=== PATIENT | male | born 1975 | race Caucasian/White ===

== ENCOUNTER → 2016-12-11 | Emergency (ER) | payer BC ==
[~2016-12-11] VITALS: Ht 175.3 cm; Wt 70.3 kg
[~2016-12-11] MED LIST: CIPR-17 PO; CLIN-62 PO; EPIN0.3P3 IJ; EPINEPHrine INJECTION 1 MG/ML AMP IM ONE; EPINEPHrine INJECTION 1 MG/ML AMP ONE; FAMO20TA5 PO; FAMOTIDINE 20MG/2ML IV (PEPCID) IVP SCH; FAMOTIDINE 20MG/2ML IV (PEPCID) ONE; HYDR-34 PO; MULT-974 PO; NS IV 1000 ML 1,000 ML IV SCH; ONDANSETRON 4 MG/2 ML (SDV) Z0FRAN ONE; PRD20T PO; diphenhydrAMINE 50 MG/ML INJ (BENADRYL) IM ONE; methylPREDNISolone 125 MG (Solu-MEDROL) VIAL IVP ONE; predniSONE 20 MG TAB PO ONE
--- NOTE | 2016-12-11 15:26 | ED Integumentary General ---
General Stated Complaint: ALLERGIC REACTION Source: patient, family History of Present Illness Time seen by provider: 15:26 Initial Comments 41-year-old male presents with allergic reaction. Patient was stung by a honey bee in his garden shortly prior to presentation. The patient was able to remove the stinger. He took Benadryl and Pepcid and came to the emergency department as he has had severe allergic reactions from bee stings in the past. Allergies and Home Medications Allergies Coded Allergies: Penicillins (Unverified Allergy, Severe, ANAPHYLAXIS, 02/25/14) Home Medications Multivitamin 1 Each Tablet, 1 EACH PO DAILY, (Reported) Constitutional: No chills, No fever EENTM: throat swelling (patient has a sensation that his throat is swelling.), No blurred vision Respiratory: No cough, short of breath, No stridor, No wheezing Cardiovascular: No chest pain Gastrointestinal: No abdominal pain, nausea, No vomiting Genitourinary: no symptoms reported Musculoskeletal: No back pain Skin: other (urticaria and swelling) Psychiatric/Neurological: No Symptoms Reported Endocrine: No Symptoms Reported Hematologic/Lymphatic: No Symptoms Reported Past [id number] Hx Patient Social History Former Smoker/When Quit: Feb 17, 1995 Recent Foreign Travel: No Contact w/Someone Who Travel: No Immunizations Up To Date Tetanus Booster (TDap): Less than 5yrs Date of Influenza Vaccine: Mar 20, 2002 Surgeries HX Surgeries: Yes Surgeries: Vasectomy Respiratory Hx Respiratory Disorders: No Cardiovascular Hx Cardiac Disorders: No Neurological Hx Neurological Disorders: Yes Reproductive System Hx Reproductive Disorders: No Sexually Transmitted Disease: No HIV/AIDS: No Genitourinary Hx Genitourinary Disorders: No Gastrointestinal Hx Gastrointestinal Disorders: No Musculoskeletal Musculoskeletal Disorders: Fractures Endocrine Hx Endocrine Disorders: No HEENT HX ENT Disorders: No Loss of Vision: Denies Hearing Impairment: Denies Cancer Hx Cancer: Yes (basal cell carcinoma top of head removed) Psychosocial Behavioral Health Disorders: Sleep Difficulties Integumentary HX Skin/Integumentary Disorder: No Blood Transfusions Hx Blood Disorders: No Adverse Reaction to a Blood Tr: No (never had transfusion) Reviewed Nursing Assessment Reviewed/Agree w Nursing PMH: Yes Family Medical History Significant Family History: No Pertinent Family Hx Physical Exam Vital Signs Vital Sign - Last 12Hours 12/11/16 15:22 Temp 98.0 Pulse 52 Resp 16 B/P (MAP) 118/85 Capillary Refill : General Appearance: WD/WN, moderate distress HEENT: normal ENT inspection Neck: non-tender, supple, other (there is area of erythema over the right anterior neck 2 inches in diameter above the clavicle from the bee sting) Cardiovascular: normal peripheral pulses, regular rate, rhythm Respiratory: chest non-tender, lungs clear, normal breath sounds, no respiratory distress Gastrointestinal: normal bowel sounds, non tender, soft Back: normal inspection Extremities: normal range of motion, non-tender Neurologic/Psychiatric: no motor/sensory deficits, alert, normal mood/affect Skin: other (insect sting right neck, swelling of the arms and urticaria.) Skin Problem Character: erythema, urticarial, warm Progress/Results/Core Measures Results/Orders My Orders Orders - GOOD LOOMIS MD Iv 1000 Ml (Sodium Chloride 0.9%) (12/11/16 15:30) Famotidine Injection (Pepcid Injection) (12/12/16 09:00) Methylprednisolone Sod Succ (Solu-Medrol (12/11/16 15:30) Diphenhydramine Injection (Benadryl Inje (12/11/16 15:30) Famotidine Injection (Pepcid Injection) (12/11/16 15:25) Ondansetron Injection (Zofran Injectio (12/11/16 15:35) Epinephrine 1 Mg Injection (Adrenalin I (12/11/16 15:38) Epinephrine 1 Mg Injection (Adrenalin I (12/11/16 15:45) Prednisone Tablet (Deltasone Tablet) (12/11/16 16:45) Medications Given in ED Current Medications Medications Dose Ordered Sig/Judy Route Start Time Stop Time Status Last Admin Dose Admin Diphenhydramine HCl 25 mg ONCE ONCE IM 12/11/16 15:30 12/11/16 15:31 DC 12/11/16 15:31 25 MG Epinephrine HCl 0.3 mg ONCE ONCE IM 12/11/16 15:45 12/11/16 15:46 DC 12/11/16 15:47 0.3 MG Methylprednisolone Sodium Succinate 125 mg ONCE ONCE IVP 12/11/16 15:30 12/11/16 15:31 DC 12/11/16 15:30 125 MG Ondansetron HCl 4 mg STK-MED ONCE .ROUTE 12/11/16 15:35 12/11/16 15:41 DC 12/11/16 15:40 4 MG Vital Signs/I&O Vital Sign - Last 12Hours 12/11/16 15:22 Temp 98.0 Pulse 52 Resp 16 B/P (MAP) 118/85 Progress Note : Time: 16:40 Progress Note Patient received 0.3 mL of epinephrine IM.Solu-Medrol IV, mg of Benadryl IV, and Pepcid IV. Patient was observed for approximately an hour during which time his symptoms essentially abated. Departure Impression Impression: Primary Impression: Bee sting Qualified Codes: T63.441A - Toxic effect of venom of bees, accidental ( unintentional), initial encounter Additional Impression: Allergic reaction to bee sting Disposition: HOME, SELF-CARE Condition: Improved Departure-Patient Inst. Decision time for Depature: 16:44 Referrals: IZAIAH HAAS MD (PCP/Family) Primary Care Physician Patient Instructions: Insect Bites and Stings (DC) Add. Discharge Instructions: Prednisone, Pepcid, and Benadryl as prescribed. Come back if any further problems or questions. Follow-up with your physician on Monday. GOOD LOOMIS MD Dec 11, 2016 15:26
[2016-12-11 16:57] VITALS: BP 109/60
== END | disposition home or self-care (01) ==
LOC: EDUNIT# 15:21 → ER 15:22
DX: T63.441A Toxic effect of venom of bees, accidental (unintentional), initial encounter (principal); Z87.891 Personal history of nicotine dependence; Y92.007 Garden or yard of unspecified non-institutional (private) residence as the place of occurrence of the external cause
CPT/HCPCS: 93041

== ENCOUNTER → 2017-11-06 | Outpatient (CLI) | payer BC ==
[~2017-11-06] MED LIST changes: -EPINEPHrine INJECTION 1 MG/ML AMP IM ONE; -EPINEPHrine INJECTION 1 MG/ML AMP ONE; -FAMOTIDINE 20MG/2ML IV (PEPCID) IVP SCH; -FAMOTIDINE 20MG/2ML IV (PEPCID) ONE; -NS IV 1000 ML 1,000 ML IV SCH; -ONDANSETRON 4 MG/2 ML (SDV) Z0FRAN ONE; -diphenhydrAMINE 50 MG/ML INJ (BENADRYL) IM ONE; -methylPREDNISolone 125 MG (Solu-MEDROL) VIAL IVP ONE; -predniSONE 20 MG TAB PO ONE
--- NOTE | 2017-11-06 13:22 | Diagnostic Imaging Report ---
INDICATION: Knee pain. COMPARISON: None. FINDINGS: Three views of the right knee are obtained. No acute fracture, malalignment or osseous destructive process is seen. Joint spaces are preserved. The articular margins appear smooth. Soft tissues appear unremarkable. IMPRESSION: Negative right knee. Dictated by: Dictated on workstation # [id number]
== END ==
LOC: RAD 11:34
PROVIDERS: ATTEND Nurse Practitioner Family
DX: M25.561 Pain in right knee (principal)
CPT/HCPCS: 73562

== ENCOUNTER → 2017-11-21 | Outpatient (CLI) | payer BC ==
--- NOTE | 2017-11-21 17:25 | Diagnostic Imaging Report ---
PROCEDURE: MRI right joint lower extremity without contrast. TECHNIQUE: Multiplanar, multisequence non contrast-enhanced MRI of the right knee was accomplished. The sagittal proton density fat saturation sequence demonstrates no fat saturation. INDICATION: Bent down 3 weeks ago with subsequent pain in the right knee. COMPARISON: Radiographs from 10/27/2017. FINDINGS: No acute fracture or dislocation is seen in the right knee. Alignment appears normal. No significant joint effusion is seen. There is trace fluid in Tee's cyst. The articular cartilage in the patellofemoral compartment demonstrates a full-thickness defect overlying the median ridge which measures approximately 6 mm transverse, with adjacent chondromalacia. The articular cartilage in the medial and lateral compartments demonstrates mild heterogeneity with no large full thickness defect seen. There is increased signal of the posterior horn of the medial meniscus, with no definitive extension seen to the articular surface. No discrete tear seen of the lateral meniscus as well. The anterior and posterior cruciate ligaments are intact. The medial collateral ligament is intact. The lateral collateral ligamentous complex appears intact. The extensor mechanism is intact. The medial and lateral retinacula are intact. There is heterogeneous fluid anterior to the proximal patellar tendon, measuring approximately 2.3 x 0.9 cm axially, and 2.2 cm craniocaudal, most consistent with bursitis. There is subcutaneous edema anterior to the knee. No deep soft tissue fluid collections are seen. IMPRESSION: 1. Small focal full-thickness defect of the patellar articular cartilage in the right knee. 2. Prepatellar bursitis with mild adjacent subcutaneous edema. Dictated by: Dictated on workstation # [id number]
== END ==
LOC: RAD 15:23
PROVIDERS: ATTEND Nurse Practitioner Family
DX: M70.41 Prepatellar bursitis, right knee (principal); M94.8X8 Other specified disorders of cartilage, other site; X50.9XXA Other and unspecified overexertion or strenuous movements or postures, initial encounter
CPT/HCPCS: 73721

== ENCOUNTER 2022-02-16 06:14 | Outpatient (CLI) | payer BC ==
[~2022-02-16] VITALS: Ht 175.3 cm; Wt 77.8 kg
[2022-02-17] MEDS ORDERED: TADA5TAB2 PO (10:58)
[2022-02-17] MEDS ORDERED: FAMO-119 PO (10:58)
== END 2022-02-17 11:04 | disposition home or self-care (01) ==
LOC: PREOP 06:14
PROVIDERS: ATTEND Surgery
DX: Z01.818 Encounter for other preprocedural examination (principal); K21.9 Gastro-esophageal reflux disease without esophagitis; Z85.038 Personal history of other malignant neoplasm of large intestine

== ENCOUNTER 2022-03-01 09:58 | Day surgery (SDC) | payer BC ==
[~2022-03-01] VITALS: Ht 175 cm; Wt 77.8 kg
[~2022-03-01 09:58] MED LIST changes: +FAMO-119 PO; +TADA5TAB2 PO
[2022-03-01] MEDS ORDERED: LACTATED RINGERS 1,000 ML IV STA (10:03)
[2022-03-01 10:15] VITALS: BP 113/80
[2022-03-01] MEDS ORDERED: HURRICAINE EXT TUBE (BENZOCAINE) XX PRN (10:15)
--- NOTE | 2022-03-01 10:35 | Progress Note-Pre Operative ---
Pre-Operative Progress Note Date of Available H&P: Feb 14, 2022 Date H&P Reviewed: Mar 01, 2022 Time H&P Reviewed: 10:34 History & Physical: H&P Reviewed, Patient Examed, No changes noted Pre-Operative Diagnosis: gerd, family hx colon cancer LUIZ POPE DO Mar 01, 2022 10:34
[2022-03-01] MEDS ORDERED: MIDAZOLAM 2 MG/2 ML (VERSED) VIAL ONE (10:37)
[2022-03-01] MEDS ORDERED: PROPOFOL INJECTION 50 ML IV ONE (10:37)
--- NOTE | 2022-03-01 11:08 | Progress Note-Post Operative ---
Post-Operative Progess Note Surgeon (s)/T[employer] Motor Mechanic (s) Surgeon LUIZ POPE DO [employer] Motor Mechanic: na Pre-Operative Diagnosis gerd, family hx colon cancer Post-Operative Diagnosis gastrititis, rectal polyp Procedure & Operative Findings Date of Procedure 03/01/22 Procedure Performed/Findings egd c biopsies, colonoscopy c hot bx polypectomy x 1 Anesthesia Type per chair lift operator Estimated Blood Loss Estimated blood loss (mL): none Specimens/Packing Specimens Removed antrum, ge, rectal polyp LUIZ POPE DO Mar 01, 2022 11:08
[2022-03-01] MEDS ORDERED: PANT40TA2 PO (11:09)
--- NOTE | 2022-03-01 11:09 | Discharge Inst-Simple/Standard ---
Discharge Inst-Standard Discharge Medications New, Converted or Re-Newed RX: Transmitted to Pharmacy Patient Instructions/Follow Up Plan of Care/Instructions/FU: 2 weeks Tavia Activity as Tolerated: Yes Discharge Diet: Regular Diet LUIZ POPE DO Mar 01, 2022 11:09
[2022-03-01 11:10] VITALS: BP 108/69
[2022-03-01 11:15] VITALS: BP 108/73
[2022-03-01 11:45] VITALS: BP 114/85
[2022-03-01 12:05] VITALS: BP 114/85
--- NOTE | 2022-03-01 12:43 | Anesthesia-General Post-Op ---
MAC Patient Condition Mental Status/LOC: Same as Preop Cardiovascular: Satisfactory Nausea/Vomiting: Absent Respiratory: Satisfactory Pain: Controlled Complications: Absent Post Op Complications Complications None Follow Up Care/Instructions Patient Instructions None needed. Anesthesiology Discharge Order Discharge Order Patient is doing well, no complaints, stable vital signs, no apparent adverse anesthesia problems. No complications reported per nursing. ABUNDIO PIMENTEL CRNA Mar 01, 2022 12:43
--- NOTE | 2022-03-01 14:29 | OPERATIVE REPORT ---
DATE OF SERVICE: 03/01/2022 PREOPERATIVE DIAGNOSES: Gastroesophageal reflux disease, family history of colon cancer. POSTOPERATIVE DIAGNOSES: Gastritis, rectal polyp. PROCEDURE: EGD with biopsies, colonoscopy with hot biopsy polypectomy x1. SURGEON: Luiz Squires DO ANESTHESIA: Per HEALTH SAFETY ENGINEER. ESTIMATED BLOOD LOSS: None. COMPLICATIONS: None. SPECIMENS: Antrum, GE junction and rectal polyp. INDICATIONS: The patient is a 46-year-old male with family history of colon cancer and also with GERD symptoms. He understands risks and benefits of procedure and wishes to proceed. Consent was signed in the chart. DESCRIPTION OF PROCEDURE: The patient was taken to the endoscopy suite, placed in left lateral recumbent position. Timeout was performed. Scope was inserted in mouth, down the esophagus, stomach and into the duodenum without difficulty. No polyps, masses or ulcerations within the duodenum. Scope was slowly retracted back into the stomach where it was further insufflated. Slight erythematous changes consistent with some slight gastritis present. Biopsy of the antrum was obtained. Scope was retroflexed noting no other pathology. Scope was returned to its normal position, slowly withdrawn to distal esophagus. No polyps, masses or ulcerations. Biopsy of the GE junction was obtained. Scope was slowly retracted back until completely removed. Digital rectal exam was performed. No palpable polyps, masses or ulcerations. Scope was inserted in the rectum, the rectum and advanced all the way to cecum with minimal difficulty. Prep was adequate. Scope was slowly retracted back. No polyps, masses or ulcerations within the cecum, ascending, transverse, descending and sigmoid colon. Once in the rectum, a small polyp was present, which hot biopsy polypectomy was performed. Scope was then also retroflexed noting no other pathology. Scope was returned to its normal position, slowly withdrawn until completely removed. The patient tolerated procedure well without any complications, taken to recovery room in stable condition. RECOMMENDATIONS: The patient will be started on Protonix 40 mg daily and stop Pepcid. We will see how his biopsy results are. He will need repeat colonoscopy in 5 years. Any issues before that he will be seen at that time. Job ID: [id number] DocumentID: [id number] Dictated Date: 03/01/2022 11:11:52 Mechanical Process Engineer Date: 03/01/2022 14:28:53 Dictated By: LUIZ SQUIRES DO
== END 2022-03-01 12:05 | disposition home or self-care (01) ==
LOC: ENDO 09:58
PROVIDERS: ATTEND Surgery
DX: D12.8 Benign neoplasm of rectum (principal); K21.9 Gastro-esophageal reflux disease without esophagitis; Z80.0 Family history of malignant neoplasm of digestive organs; Z87.891 Personal history of nicotine dependence
CPT/HCPCS: 88305

== ENCOUNTER → 2022-09-15 | Outpatient (CLI) | payer BC ==
[~2022-09-15] MED LIST changes: +PANT40TA2 PO
--- NOTE | 2022-09-15 16:20 | Diagnostic Imaging Report ---
INDICATION: LOW BACK PAIN AND TAILBONE PAIN COMPARISON: None. FINDINGS: Multiple radiographic views of the sacrum and coccyx were obtained and show no fractures, dislocations, or other acute bony abnormalities. Joint spaces are well maintained throughout. The soft tissues appear unremarkable. No unexpected radiopaque foreign bodies are identified. IMPRESSION: Unremarkable radiographic exam of the sacrum and coccyx. Dictated by: Dictated on workstation # [id number]
--- NOTE | 2022-09-15 17:06 | Diagnostic Imaging Report ---
INDICATION: Back pain. 3 views were obtained. FINDINGS: The alignment of the lumbar spine is normal. The vertebral body heights are well maintained. No spondylolysis or spondylolisthesis. No fractures are identified. IMPRESSION: Unremarkable three-view lumbar spine. Dictated by: Dictated on workstation # [id number]
== END ==
LOC: RAD 15:25
PROVIDERS: ATTEND Nurse Practitioner Family
DX: M54.50 Low back pain, unspecified (principal); M53.3 Sacrococcygeal disorders, not elsewhere classified
CPT/HCPCS: 72100; 72220